=== PATIENT | female | born 2000 | race Hispanic/Latino ===

== ENCOUNTER 2025-03-10 09:43 | Outpatient (RCR) | payer OTHER, SELFPAY ==
[2025-02-21 11:03] VITALS: BP 115/57; PULSE 68
[2025-02-28 09:54] VITALS: BP 113/54; PULSE 71
--- NOTE | ~2025-03-10 | US_ITS ---
EXAMINATION: US OB BPP wo non-stress DATE: 02/21/2025 11:23 INDICATION: Diabetes. Third trimester. TECHNIQUE: Real-time pelvic ultrasound was performed. COMPARISON: None. FINDINGS: There is a single living fetus in vertex presentation. The placenta is anterior and fundal. heart rate is 135 beats per minute (bpm). Biophysical profile performed by the technologist: breathing (30 sec sustained breathing in 30 minutes): 2 out of 2 movement (3 gross body movements in 30 minutes): 2 out of 2 tone (one episode of apyjibk-nwzulwmld-rgxjtro limb movement): 2 out of 2 Amniotic fluid pocket (2 cm): 2 out of 2 Total score: 8 out of 8 IMPRESSION: 1. Single living fetus in vertex presentation. 2. Biophysical profile 8 out of 8. Reviewed, dictated and finalized at location E.
--- NOTE | ~2025-03-10 | US_ITS ---
EXAMINATION: US OB BPP wo non-stress DATE: 02/28/2025 10:50 INDICATION: Maternal gestational diabetes during third trimester of . TECHNIQUE: Real-time pelvic ultrasound was performed. The interpreting radiologist was not present for the study. COMPARISON: None. FINDINGS: There is a single living fetus in vertex presentation. The placenta is anterior. heart rate is 144 beats per minute (bpm). Oligohydramnios with amniotic fluid index of 7.1 cm (5th%-95%: 8.3-24.5 cm at 33 weeks estimated gestational age) Biophysical profile performed by the technologist: breathing (30 sec sustained breathing in 30 minutes): 2 out of 2 movement (3 gross body movements in 30 minutes): 2 out of 2 tone (one episode of mjxychb-xuyfmjokb-zqifjgq limb movement): 2 out of 2 Amniotic fluid pocket (2 cm): 2 out of 2 Total score: 8 out of 8 IMPRESSION: 1. Single living fetus in vertex presentation with heart rate of 144 bpm. 2. Biophysical profile 8 out of 8. Reviewed, dictated and finalized at location A. [facility]
--- NOTE | ~2025-03-10 | US_ITS ---
EXAM/PROCEDURE: US OB BPP wo non-stress HISTORY: GDM COMPARISON: February 28, 2025 TECHNIQUE: Directed evaluation for biophysical profile score performed. FINDINGS: A single viable intrauterine gestation is present with heart rate of 143 bpm Presentation: Vertex EGA by dates 34 weeks 4 days Amniotic fluid volume: 6.08 cm. Amniotic fluid volume on the previous exam was 7.14 cm. Biophysical profile scores 8/8. IMPRESSION: 1. Single viable intrauterine gestation with heart rate of 143 bpm; biophysical profile scores 8/8. 2. Amniotic fluid volume of 6.08 cm, not grossly changed in appearance, borderline for oligohydramnios. Reviewed, dictated and finalized at location A. ATIONAL RISK CONSULTANT IMPRESSION: 1. Single viable intrauterine gestation with heart rate of 143 bpm; biophysical profile scores 8/8. 2. Amniotic fluid volume of 6.08 cm, not grossly changed in appearance, borderl ine for oligohydramnios.
[2025-03-10 11:14] VITALS: BP 128/64; PULSE 84
== END 2025-04-16 11:41 | disposition other institution (70) ==
LOC: ANHOBOP 09:43
PROVIDERS: Visit Provider Obstetrics & Gynecology
DX: O24.419 Gestational diabetes mellitus in pregnancy, unspecified control (principal); Z3A.32 32 weeks gestation of pregnancy
CPT/HCPCS: 59025; 76819

== ENCOUNTER 2025-04-11 06:03 | Inpatient (IN) | payer OTHER, SELFPAY ==
[2025-04-11] VITALS (116 sets, daily range): BP systolic 87–161; BP diastolic 25–91; PULSE 63–166; TEMP 36.8–37.5; O2SAT 95–100; BMI 33.3
[2025-04-11] MEDS: LACTATED RINGERS 1,000 ML 125 ML IV CONT ×2 (07:04→15:21)
[2025-04-11] MEDS: OXYTOCIN 30 UNITS/NS 500 ML 30 UNITS/500 ML BAG IV CONT (07:06)
[2025-04-11 07:07] LABS: Hematocrit 37.7 % (37.0-47.0); Hemoglobin 12.8 g/dL (12.0-15.0); Immature Granulocyte Percent A 0.3 % (0-0.5); Lymphocytes Absolute Auto 1.27 K/mm3 (0.9-3.2); Mean Corpuscular HGB Conc 34.0 g/dl (32-36); Mean Corpuscular Hemoglobin 30.0 pg (26-34); Mean Corpuscular Volume 88.5 fl (80-100); Nucleated Red Blood Cells Absolute Auto 0.000 K/mm3 (0.0-0.012); Nucleated Red Blood Cells Perc 0.0 % (0.0-0.2); Platelet Count Result 177 k/mm3 (150-375); Red Blood Count 4.26 M/mm3 (4.2-5.4); White Blood Count 8.7 K/mm3 (4.5-10.0)
--- NOTE | 2025-04-11 07:33 | LDADM ---
This patient, Ambreen Marin, was admitted to Labor/Delivery/Recovery 105 on 04/11/25 at 06:03. Plans for labor, pain management and were discussed with patient. Patient/family oriented to hospital policies and general routines including ID bracelet, bed and alarms, visiting hours, pain management, procedures, bathroom and other care routines, personal items, smoking policy, room service/diet and guest tray routines, security routines, and visiting hours. Patient/Family are encouraged to report perceived risks to care and to ask questions if they do not understand what they are told or what they should do. See OBIX for further documentation.
[2025-04-11 07:48] LABS: Syphilis IgG/IgM Antibody Non-Reactive (Nonreactive)
--- NOTE | 2025-04-11 08:15 | WPDOBADMIT ---
Obstetrics - Admit Note Admission Note: record reviewed. No pertinent additions to the history and/or any subsequent changes in the physical findings that are not consistent with the expected course of the were found. Additions to the history and/or subsequent changes in the physical findings follow. Admit IOL 2.5/70/-2 AROM clear odorless fluid, anticipate vaginal delivery
--- NOTE | 2025-04-11 13:57 | PM.OBPNVD ---
OB - PN: Subj Subjective Date/time seen: 04/11/25 13:57 IUPC inserted, 4 cm/80%/-2. Reassuring status. OB - PN: Obj Data Labs 04/11/25 06:28 Labs: Laboratory Results - last 24 hr 04/11/25 04/11/25 04/11/25 06:28 07:12 11:10 WBC 8.7 RBC 4.26 Hgb 12.8 Hct 37.7 MCV 88.5 MCH 30.0 MCHC 34.0 RDW 13.6 Plt Count 177 MPV 11.9 H Immature Gran % (Auto) 0.3 Neut % (Auto) 79.6 H Lymph % (Auto) 14.7 L [place] % (Auto) 5.1 Eos % (Auto) 0.2 Baso % (Auto) 0.1 L Lymph # (Auto) 1.27 [place] # (Auto) 0.4 Eos # (Auto) 0.0 Baso # (Auto) 0.0 Abs Immat Gran (auto) 0.03 Absolute Neuts (auto) 6.9 H Absolute Nucleated RBC 0.000 Nucleated RBC % 0.0 POC Capillary Glucose 85 111 H Syphilis IgG/IgM Ab Non-reactive Blood Type O Positive Antibody Screen Negative OB - PN A/P Time Spent With Patient Time: Total time spent is greater than 50% in coordination of care (as documented) at patient's floor/unit and/or counseling patient:
--- NOTE | 2025-04-11 18:15 | P.PNAN_ITS ---
Anes - Eval Pre Procedure Procedure: Labor epidural Date/Time: 04/11/25 18:15 Surgeon: Jozef Preop Diagnosis: Abdominal pain with contractions Pre Op Diagnosis: IOL Patient Data Age: 24 Gender: F Height: 1.75 m Weight: 102.5 kg Last Vital Signs Temp 99.5 F 04/11/25 17:30 Pulse 85 04/11/25 18:01 BP 87/25 L 04/11/25 18:01 Pulse Ox 100 04/11/25 18:13 O2 Del Method Room Air 04/11/25 07:29 Allergies Allergy/AdvReac Type Severity Reaction Status Date / Time papaya Allergy Mild Numbness Verified 04/11/25 07:37 Home Medications ?Medication ?Instructions ?Recorded ?Confirmed ?Type ferrous sulfate 137 mg (45 mg 137 mg PO DAILY 03/26/25 03/26/25 History iron) tablet,extended release (Slow Fe) vit no.95-ferrous 1 tablet PO DAILY 03/26/25 03/26/25 History fumarate 28 mg-folic acid 800 mcg tablet () Laboratory Tests 04/11/25 04/11/25 04/11/25 06:28 07:12 11:10 WBC 8.7 K/mm3 (4.5-10.0) RBC 4.26 M/mm3 (4.2-5.4) Hgb 12.8 g/dL (12.0-15.0) Hct 37.7 % (37.0-47.0) MCV 88.5 fl (80-100) MCH 30.0 pg (26-34) MCHC 34.0 g/dl (32-36) RDW 13.6 % (11.5-14.5) Plt Count 177 k/mm3 (150-375) MPV 11.9 H fl (7.4-10.4) Immature Gran % (Auto) 0.3 % (0-0.5) Neut % (Auto) 79.6 H % (45.5-73.1) Lymph % (Auto) 14.7 L % (18.3-44.2) [place] % (Auto) 5.1 % (2.6-8.5) Eos % (Auto) 0.2 % (0-4.4) Baso % (Auto) 0.1 L % (0.2-1.2) Lymph # (Auto) 1.27 K/mm3 (0.9-3.2) [place] # (Auto) 0.4 K/mm3 (0.1-0.6) Eos # (Auto) 0.0 K/mm3 (0-0.3) Baso # (Auto) 0.0 K/mm3 (0.0-0.1) Abs Immat Gran (auto) 0.03 K/mm3 (0.00-0.031) Absolute Neuts (auto) 6.9 H K/mm3 (1.3-6.7) Absolute Nucleated RBC 0.000 K/mm3 (0.0-0.012) Nucleated RBC % 0.0 % (0.0-0.2) POC Capillary Glucose 85 mg/dl 111 H mg/dl (65-105) (65-105) Syphilis IgG/IgM Ab Non-reactive (Nonreactive) Blood Type O Positive Antibody Screen Negative 04/11/25 04/11/25 15:17 17:18 WBC RBC Hgb Hct MCV MCH MCHC RDW Plt Count MPV Immature Gran % (Auto) Neut % (Auto) Lymph % (Auto) [place] % (Auto) Eos % (Auto) Baso % (Auto) Lymph # (Auto) [place] # (Auto) Eos # (Auto) Baso # (Auto) Abs Immat Gran (auto) Absolute Neuts (auto) Absolute Nucleated RBC Nucleated RBC % POC Capillary Glucose 72 mg/dl 73 mg/dl (65-105) (65-105) Syphilis IgG/IgM Ab Blood Type Antibody Screen : gestational age HCG: positive Patient hx anesthesia problems: none Family hx anesthesia problems: none Results Review: All pre-operative results and documents have been reviewed as part of the pre- operative evaluation. [facility] Past Medical History Medical History Asthma Obesity (BMI 30-39.9) Family History Family History Sibling Asthma Social History Social History Smoking status: Never smoker Substance use: never Lack of Transportation: No Lack of Food: Never True Current Housing: I Have Housing Concerned About Future Housing: No Difficulty Paying Gas/Electric Bills: No Difficulty Paying for Meds: No Currently Unemployed: No Education: High School Diploma/GED Difficulty w/ Childcare or Family Care: No Spiritual care concerns: No Exam Day of Procedure 04/11/25 18:15 Patient weight: obese
[2025-04-11] MEDS: OXYTOCIN 30 UNITS/NS 500 ML 30 UNITS/500 ML BAG 125 UNITS IV CONT (21:48)
--- NOTE | 2025-04-11 21:56 | PM.OBPRVD ---
OB - Vaginal Delivery Note Procedure Delivery date: 04/11/25 Induction method: AROM and Per Pitocin Protocol Delivery monitor: External FHT and Internal Uterine Route of delivery: Episiotomy description: Midline Delivery repair: vicryl Quantitative Blood Loss (ml): 500 Anesthesia type: None Disposition: Floor Complications: No immediate complications
[2025-04-12] VITALS: BP 135/76; PULSE 80
[2025-04-12] MEDS: WITCH HAZEL 40 PADS 1 PAD TOPICAL (00:12)
[2025-04-12] MEDS: BENZOCAINE 20% AER SPR (*SP) 56 GM CAN 1 SPRAY TOPICAL (00:12)
--- NOTE | 2025-04-12 00:32 | OBPPTRN ---
Patient transferred to post room #290 via wheelchair. Support person present. Oriented to unit, room, information board, rooming in, admission packet and security measures. Patient verbalizes understanding.
[2025-04-12 00:45] VITALS: BP 128/79; PULSE 83; RESP 16; TEMP 36.9; O2SAT 100
[2025-04-12] MEDS: IBUPROFEN 600 MG TABLET PO ×3 (03:11→17:06)
[2025-04-12 04:35] VITALS: BP 116/75; PULSE 75; RESP 16; TEMP 36.8; O2SAT 100
[2025-04-12 04:42] LABS: Hematocrit 27.2 % (37.0-47.0); Hemoglobin 9.4 g/dL (12.0-15.0)
[2025-04-12 07:45] VITALS: BP 111/80; PULSE 72; RESP 18; TEMP 37; O2SAT 99
--- NOTE | 2025-04-12 08:23 | P.PNOB_ITS ---
OB - PN: Subj Subjective Date/time seen: 04/12/25 08:23 Patient comments: no complaints, pain well controlled, incisional pain, tolerating diet and flatus present OB - PN: Obj Data Labs 04/12/25 04:36 Labs: Laboratory Results - last 24 hr 04/11/25 04/11/25 04/11/25 11:10 15:17 17:18 Hgb Hct POC Capillary Glucose 111 H 72 73 04/11/25 04/12/25 19:18 04:36 Hgb 9.4 L D Hct 27.2 L POC Capillary Glucose 91 OB - PN A/P Plan day: 1 Plan: routine care Comments: No problems, routine care Time Spent With Patient Time: Total time spent is greater than 50% in coordination of care (as documented) at patient's floor/unit and/or counseling patient: Exam 2 Const: General: comfortable, no acute distress and alert Resp: Effort & Inspection: normal respiratory effort Auscultation: no crackles, no rales and no rhonchi Cardio: Rate: regular rate Heart sounds: no click, no murmurs and no rubs GI: Inspection: non-distended GI Palp: No Tenderness to palpation present (GI) Auscultation: normal bowel sounds Other: Incision - CDI Extrem: General: normal to inspection, no pedal edema and no calf tenderness
[2025-04-12] MEDS: DOCUSATE SODIUM 100 MG CAPSULE PO ×2 (09:22→17:06)
[2025-04-12] MEDS: MULTIVIT/MIN/PREN/FOL AC/IRON TABLET 1 TAB PO (09:22)
[2025-04-12] MEDS: ACETAMINOPHEN 325 MG TABLET 650 MG PO (11:11)
[2025-04-12 12:20] VITALS: BP 124/76; PULSE 83; RESP 18; TEMP 36.8; O2SAT 100
--- NOTE | 2025-04-12 15:21 | PC.NURSE ---
1140 Consulted with patient to assess needs related to . Discussed with mother her successes, concerns and any questions she has. Per mother she had been giving a bottle but would like to see if infant would latch and breastfeed, she had used a nipple shield prior. We reviewed working with the infant, supporting breast, protecting her nipples with an optimal deep latch, good positioning, and good hand washing. Encouraged understanding the benefits of skin to skin, responding to feeding cues, frequencies of feeding 8-12 times in 24 hours (approximately 2-3 hours), duration of feedings, milk production, intake/output feeding sheet and signs of adequate intake encouraging swallowing at the breast. Reviewed positioning and alignment, supporting breast, off-centered (asymmetrical latch) and leading with the chin with big, open, wide gape. Infant latched to the [right] breast in [football] position with the nipple shield. Education given to the mother of how to visualize the suckling (with good rocking jaw motion) swallows (dropping of the lower jaw) and how to listen for drinking at the breast (the ka sound). The infant was [able] to maintain latch without discomfort to mother. Nipple care reviewed with optimal latch, good positioning and using clean hands when touching her breast. Reviewed good handwashing, cleaning the nipple shield and the appropriate way to apply and use as a tool. Discussed with mom the nipple shield precautions, possible complications associated with the risks and benefits. Reviewed practicing with a nipple shield, then without and how to protect the milk supply and production. Mom and baby guide referred to as a resource for outpatient services, community resources and when to call a provider. Mom voiced understanding of the importance of hand expression, nipple stimulation and initiating a pumping schedule if continues to nurse with the shield. Resources used to facilitate learning were used from the [visual handouts/ tool/mom and baby guide]. Mother voiced understanding of the education shared, to call for assistance if the does not latch or if there is discomfort with . Reported to the Primary RN. 1250 CLC RN checked in with mother, had breastfed for 10 minutes with the nipple shield and then FOB fed baby 10mls of formula. Mother is requesting to be set up with a breast pump as she would like to only pump and bottle feed at this time. Her lunch just arrived, she would like to eat and will call when she is ready to be set up with a breast pump, she does have her own breast pump at home. 1400 Breast pump provided due to mother request and was also using a nipple shield. Instructions given on cleaning, care, usage, that there should be no pain, pumping schedule for milk production, collection, and storage of human milk. Patient was assessed for correct placement, flange size (nipples measured 19mm, will use a size 24 flange), to pump for comfort and nipple stretching/stimulation for adequate milk production every 3 hours (8 times in 24 hours) 1-2 times at night. Parents are encouraged to record the pumping schedule on the feeding sheet.?Mother voiced understanding of the education shared along with mom/baby guide and the pump measurement, flange fit handout for additional resource information. Reported to the Primary RN.
[2025-04-12 18:55] VITALS: BP 105/72; PULSE 85; RESP 16; TEMP 37; O2SAT 98
[2025-04-13] MEDS: IBUPROFEN 600 MG TABLET PO (00:33)
--- NOTE | 2025-04-13 08:10 | P.PNOB_ITS ---
OB - PN: Subj Subjective Date/time seen: 04/13/25 08:10 Interval history: pp day 2 doing well plan d/c home OB - PN: Obj Data Labs 04/12/25 04:36 OB - PN A/P Plan day: 2 Plan: routine care and discharge home Time Spent With Patient Time: Total time spent is greater than 50% in coordination of care (as documented) at patient's floor/unit and/or counseling patient: Review of Systems 2 Review of Systems: All systems reviewed & are unremarkable except as noted in HPI and below Exam 2 Const: General: cooperative and healthy appearing Resp: Effort & Inspection: normal respiratory effort Cardio: Rate: regular rate
--- NOTE | 2025-04-13 08:12 | PM.OBDSVD ---
DS: Admitting Diagnosis Discharge Date 04/13/25 Admitting Diagnosis IOL DS: Discharge Diagnosis Discharge Diagnosis (1) Vaginal delivery: Code(s): O80 - Encounter for full-term uncomplicated delivery Status: Acute OB - DS: Summary OB Procedures : None OB Procedures Intrapartum: Spontaneous Vag Delivery OB Procedures: : None Peripartum Data Episiotomy description: Midline Time Spent with Patient Time attestation: Total time spent providing and/or coordinating discharge services: Discharge Plan Discharge Attending physician on discharge: Yoshi Campos Discharging Clinician: Pat Yost Patient Disposition: Home Activity: pelvic rest Diet: regular Patient Instructions: Antibiotic Form Patient Language: Mohawk Stand Alone Forms: General Discharge Information Follow-up/Referrals: Yoshi Campos MD [Physician, PRODUCT APPLICATIONS SCIENTIST] - 4 Weeks Discharge Medications: Continued PNV no.95-ferrous fumarate-FA [] 28 mg iron- 800 mcg tablet 1 tablet PO DAILY Slow Fe 137 mg (45 mg iron) tablet extended release 137 mg PO DAILY Date of admission: 04/11/25 06:03 Primary Care Provider: PHYSICIAN,QUAL FIELD MANAGER Admitting Provider: Yoshi Campos Attending physician on admission: Yoshi Campos Condition: Stable
[2025-04-13 08:20] VITALS: BP 118/71; PULSE 74; RESP 16; TEMP 36.8; O2SAT 100
[2025-04-13] MEDS: MULTIVIT/MIN/PREN/FOL AC/IRON TABLET 1 TAB PO (09:04)
[2025-04-13] MEDS: DOCUSATE SODIUM 100 MG CAPSULE PO (09:04)
--- NOTE | 2025-04-13 10:05 | PC.NURSE ---
Consulted with mother concerning needs and she shared her ability to independently latch infant optimally without pain with and without the nipples shield. Per mother, she plans on putting to breast as well as pumping and bottle feeding. Mother is feeding appropriately for growth of infant and understands stimulating to eat if needed. Infant has had appropriate feedings in the last 24 hours meets the outcomes for weight, output, blood sugar and jaundice at this time. Reinforced understanding of milk production, transition of milk, signs of adequate intake, transition of stool, prevention/relief of engorgement, plugged ducts, mastitis, responsive watching for feeding cues, the different methods of stimulating to breastfeed 1-3 hours after the start of the last feeding, community resources, and when to call a provider using the resource of the feeding sheet along with the mom and baby guide. Mother voiced understanding of the information shared, is confident to continue effectively breast and bottle feed her at home, when to call for assistance, denies any additional assistance or education at this time. [facility] referral faxed to the [place] office. Reported to the Primary RN.
[2025-04-14 11:42] VITALS: BP 120/59; PULSE 91; RESP 20; TEMP 37; O2SAT 99
== END 2025-04-13 12:15 | disposition home or self-care (01) | DRG 560 ==
LOC: ANHLDR 06:11 → ANHOB2 04-12 00:40
PROVIDERS: Admitting Provider Obstetrics & Gynecology; Visit Provider Obstetrics & Gynecology
DX: O24.429 Gestational diabetes mellitus in childbirth, unspecified control (principal); Z37.0 Single live birth; Z3A.39 39 weeks gestation of pregnancy; O70.9 Perineal laceration during delivery, unspecified
CPT/HCPCS: 36415; 82948; 85014; 85018; 85025; 86593; 86850; 86900; 86901; A9270; J2590; J7120